=== PATIENT | male | born 2005 ===

== ENCOUNTER 2024-08-17 19:18 | Emergency (ER) | payer OTHER ==
[~2024-08-17] VITALS: Ht 180.3 cm; Wt 82.5 kg
[2024-08-17] MEDS ORDERED: Ondansetron HCl 2 MG / ML 2ML Vial IV ONE (19:25)
[2024-08-17] MEDS ORDERED: HYDROmorphone HCl/Pf 1MG SYR IV PRN (19:25)
[2024-08-17] MEDS ORDERED: CeFAZolin Sodium 2,000 MG in NS 100 ML IV ONE (19:25)
[2024-08-17 19:32] LABS: BASOPHILS ABSOLUTE AUTO 0.06 K/mm3 (0.00-0.23); BASOPHILS PERCENT AUTO 1 % (0-2); EOSINOPHILS ABSOLUTE AUTO 0.29 K/mm3 (0.00-0.68); EOSINOPHILS PERCENT AUTO 3 % (0-6); Hematocrit 46.9 % (37.0-53.0); Hemoglobin 16.3 g/dL (13.5-17.5); IMMATURE GRAN PERCENT AUTO 1 % (0-1); LYMPHOCYTES ABSOLUTE AUTO 4.99 K/mm3 (0.84-5.20); LYMPHOCYTES PERCENT AUTO 50 % (21-46); MONOCYTES ABSOLUTE AUTO 0.64 K/mm3 (0.16-1.47); MONOCYTES PERCENT AUTO 7 % (4-13); Mean Corpuscular HGB 28.3 pg (26.0-34.0); Mean Corpuscular HGB Conc 34.8 g/dL (31.5-36.5); Mean Corpuscular Volume 82 fL (80-100); Mean Platelet Volume 9.5 fL (9.1-12.4); NEUTROPHILS ABSOLUTE AUTO 3.84 K/mm3 (1.96-9.15); NEUTROPHILS PERCENT AUTO 39 % (41-73); Platelet Count 302 K/mm3 (150-400); RDW Coefficient Variation 12.4 % (11.7-14.2); Red Blood Cell Count 5.75 M/mm3 (4.30-5.90); White Blood Cell Count 9.92 K/mm3 (4.00-11.30)
[2024-08-17 19:46] LABS: International Normalized Ratio 0.98; Prothrombin Time Results 10.5 Sec (9.7-11.5)
[2024-08-17 19:52] LABS: Alanine Aminotransfer (ALT/SGP 345 U/L (12-78); Albumin, Blood 3.6 g/dL (3.4-5.0); Alk Phos 79 U/L (50-136); Anion Gap 11 mmol/L (3-11); Aspartate Aminotrans (AST/SGOT 312 U/L (12-37); Bilirubin, Total 0.6 mg/dL (0.1-1.0); Blood Urea Nitrogen 9 mg/dL (8-24); Bun/Creatinine Ratio 11.6 (12.0-20.0); CO2, Blood 24 mmol/L (21-32); Calcium, Blood 8.5 mg/dL (8.5-10.1); Chloride, Blood 105 mmol/L (98-108); Creatinine, Blood 0.78 mg/dL (0.60-1.20); Ethanol (Alcohol), Blood, Med <3 mg/dL; Globulin, Blood 3.5 g/dL (2.2-4.0); Glomerular Filtration Rate 131 (60-); Glucose, Blood 132 mg/dL (70-99); Potassium, Blood 3.1 mmol/L (3.5-5.5); Sodium, Blood 137 mmol/L (136-145); Total Protein, Blood 7.1 g/dL (6.4-8.2)
[2024-08-17] MEDS ORDERED: HYDROmorphone HCl/Pf 1MG SYR IV ONE (21:45)
== END 2024-08-17 22:42 | disposition short-term general hospital (02) ==
LOC: ER 19:18
PROVIDERS: Emergency Medicine
DX: S22.32XA Fracture of one rib, left side, initial encounter for closed fracture (principal); S27.331A Laceration of lung, unilateral, initial encounter; S36.113A Laceration of liver, unspecified degree, initial encounter; S52.321A Displaced transverse fracture of shaft of right radius, initial encounter for closed fracture; S52.251A Displaced comminuted fracture of shaft of ulna, right arm, initial encounter for closed fracture; S02.5XXA Fracture of tooth (traumatic), initial encounter for closed fracture; V13.4XXA Pedal cycle driver injured in collision with car, pick-up truck or van in traffic accident, initial encounter
CPT/HCPCS: 70450; 70486; 71260; 72125; 73090; 73562-LT; 73562-RT; 73590; 73620; 74177; 80053; 80320; 83690; 85025; 85610; 96365-59; 96375; 96376; 99285-25; J0690; J1171; J2405; L0160; Q9967